=== PATIENT | male | born 1990 | race Two or more races ===

== ENCOUNTER 2021-06-10 14:17 | Emergency (ER) | payer MEDICAID ==
[~2021-06-10] VITALS: Ht 170.2 cm; Wt 72.6 kg
[2021-06-10 14:23] VITALS: BP 124/72
== END 2021-06-10 14:45 | disposition left against medical advice (07) ==
LOC: ER 14:17 → EDBD 14:17 → ER 14:22
DX: R41.82 Altered mental status, unspecified (principal); F19.10 Other psychoactive substance abuse, uncomplicated; Z53.29 Procedure and treatment not carried out because of patient's decision for other reasons

== ENCOUNTER 2021-06-14 13:09 | Emergency (ER) | payer MEDICAID ==
[~2021-06-14] VITALS: Ht 175.3 cm; Wt 68.0 kg
[2021-06-14 13:09] VITALS: BP 106/84
== END 2021-06-14 13:28 | disposition left against medical advice (07) ==
LOC: ER 13:09 → EDBD 13:09 → ER 13:28
DX: F19.90 Other psychoactive substance use, unspecified, uncomplicated (principal)